=== PATIENT | male | born 1970 | race Caucasian/White ===

== ENCOUNTER → 2020-11-12 12:57 | Outpatient (CLI) | payer OTHER, SELFPAY ==
[2020-11-12] MEDS: COVID-19 VACC #1, MRNA(MOD) 100 MCG/0.5 ML VIAL IM (13:10)
== END ==
PROVIDERS: Visit Provider Internal Medicine
DX: Z23 Encounter for immunization (principal)
CPT/HCPCS: 0011A; 91301